=== PATIENT | male | born 1975 | race Caucasian/White ===

== ENCOUNTER → 2018-03-07 | Outpatient (CLI) | payer BC, OTHER ==
[~2018-03-07] MED LIST: BIFI4CAP PO; HYDR-3240 PO; LEVO137T2 PO; NAPR-685 PO; OMEG1CAP23 PO; ROSU20TA PO; SEMA1PEN SC
[2018-03-07 12:58] LABS: ALBUMIN 4.1 g/dL (3.4-5.0); ANION GAP 7 mmol/L (5-15); CHLORIDE 107 mmol/L (98-107)
[2018-03-07 13:01] LABS: ALANINE AMINOTRANSFERASE 94 U/L (12-78); ALKALINE PHOSPHATASE 118 U/L (45-117); BILIRUBIN,TOTAL 0.9 mg/dL (0.2-1.0); CREATININE 1.17 mg/dL (0.7-1.3); TOTAL PROTEIN 8.1 g/dL (6.4-8.2)
== END | disposition home or self-care (01) ==
LOC: STAR 12:09
PROVIDERS: ATTEND Surgery
DX: Z01.818 Encounter for other preprocedural examination (principal)
CPT/HCPCS: 36415; 80053; 93005

== ENCOUNTER 2018-03-11 11:53 | Inpatient (IN) | payer BC ==
[2018-03-07 13:37] VITALS: BP 133/81
[~2018-03-11] VITALS: Ht 185.4 cm; Wt 95.4 kg
[~2018-03-11 11:53] MED LIST changes: +BUPIVACAINE/PF 0.5% ONE; +DIPHENHYDRAMINE 50 MG/ML, 1ML IVPush PRN; +HALOPERIDOL 5 MG/ML IV PRN; -HYDR-3240 PO; -LEVO137T2 PO; +MEPERIDINE/PF 25MG/0.5ML IVPush PRN; +OXYcodone 5 MG/5 ML ORAL.SOL UDC PO PRN; +PROMETHAZINE 25 MG/ML, 1ML IV PRN
[2018-03-11] MEDS ORDERED: ACETAMINOPHEN 500 MG TABLET PO ONE (12:30)
[2018-03-11] MEDS ORDERED: GABAPENTIN 300 MG CAPSULE PO ONE (12:30)
[2018-03-11] MEDS ORDERED: LACTATED RINGERS 1,000 ML IV SCH (12:30)
[2018-03-11] MEDS ORDERED: FENTANYL PF 250 MCG/5ML ONE (15:14)
[2018-03-11] MEDS ORDERED: MIDAZOLAM 1 MG/ML, 2ML ONE (15:14)
[2018-03-11] MEDS ORDERED: EPINEPHRINE 1 MG/ML, 1ML ONE (15:37)
[2018-03-11] MEDS ORDERED: FENTANYL PF 100 MCG/2ML ONE ×3 (17:17→19:18)
[2018-03-11] MEDS ORDERED: DEXAMETHASONE 4 MG/ML, 1ML ONE (17:20)
[2018-03-11] MEDS ORDERED: PROPOFOL 10 MG/ML, 20ML ONE (17:20)
[2018-03-11] MEDS ORDERED: ONDANSETRON 2MG/ML, 2ML ONE (17:20)
[2018-03-11] MEDS ORDERED: CEFAZOLIN 1,000 MG ONE (17:20)
[2018-03-11] MEDS ORDERED: ROCURONIUM 10MG/ML,5ML ONE (17:20)
[2018-03-11] MEDS ORDERED: GLYCOPYRROLATE 0.2MG/1ML, 5ML ONE (17:20)
[2018-03-11] MEDS ORDERED: NEOSTIGMINE 1 MG/ML, 10ML ONE (17:20)
[2018-03-11] MEDS ORDERED: SUCCINYLCHOLINE 20 MG/ML, 10ML ONE (17:20)
[2018-03-11] MEDS ORDERED: OXYcodone 5 MG/5 ML ORAL.SOL UDC ONE (18:15)
[2018-03-11] MEDS ORDERED: HYDROmorphone 2 MG/ML, 1ML ONE (18:15)
[2018-03-11] MEDS: FENTANYL PF 100 MCG/2ML IV PRN ×3 (18:18→19:20)
[2018-03-11] MEDS: HYDROmorphone 2 MG/ML, 1ML IVPush PRN ×5 (18:25→19:10)
[2018-03-11 19:45] VITALS: BP 144/91
[2018-03-11] MEDS ORDERED: ACETAMINOPHEN 650 MG SUPP PR PRN (20:00)
[2018-03-11] MEDS ORDERED: SEMAGLUTIDE 0.5 MG SQ SCH (20:00)
[2018-03-11] MEDS ORDERED: ACETAMINOPHEN 325 MG TABLET PO PRN (20:00)
[2018-03-11] MEDS ORDERED: hydrALAzine 20 MG/ML, 1ML IV PRN (20:00)
[2018-03-11] MEDS: SODIUM CHLORIDE FLUSH 10ML SYR IVF SCH (20:27)
[2018-03-11] MEDS: HYDROcodone/APAP 5/325 TABLET PO PRN (20:27)
[2018-03-11] MEDS: CALCIUM/VITAMIN D3 250-125 TABLET PO SCH (20:28)
[2018-03-11] MEDS ORDERED: ATORVASTATIN 40 MG TABLET PO SCH (21:00)
[2018-03-12 00:08] VITALS: BP 117/75
[2018-03-12] MEDS: HYDROcodone/APAP 5/325 TABLET PO PRN ×3 (00:37→08:25)
[2018-03-12 04:17] VITALS: BP 121/72
[2018-03-12 05:38] LABS: CALCIUM 8.5 mg/dL (8.5-10.1)
[2018-03-12 07:33] VITALS: BP 132/82
[2018-03-12] MEDS: CALCIUM/VITAMIN D3 250-125 TABLET PO SCH (08:25)
[2018-03-12] MEDS: SODIUM CHLORIDE FLUSH 10ML SYR IVF SCH (08:26)
[2018-03-12] MEDS ORDERED: HYDR-3240 PO (11:07)
[2018-03-12] MEDS ORDERED: LEVO137T2 PO (11:08)
== END 2018-03-12 11:22 | disposition home or self-care (01) | DRG 627 ==
LOC: OUT 11:53 → 4NOR 19:40 → OUT 20:13 → 4NOR 20:22 → DCLOUNGE 03-12 11:02
PROVIDERS: ADMIT Surgery; ATTEND Surgery
PROC: 0GSN0ZZ Reposition Right Inferior Parathyroid Gland, Open Approach (ICD-10-PCS; 2018-03-11)
PROC: 07B20ZZ Excision of Left Neck Lymphatic, Open Approach (ICD-10-PCS; 2018-03-11)
PROC: 07B10ZZ Excision of Right Neck Lymphatic, Open Approach (ICD-10-PCS; 2018-03-11)
PROC: 4A11X4Z Monitoring of Peripheral Nervous Electrical Activity, External Approach (ICD-10-PCS; 2018-03-11)
PROC: 0GTK0ZZ Resection of Thyroid Gland, Open Approach (ICD-10-PCS; principal; 2018-03-11 14:00)
DX: E04.2 Nontoxic multinodular goiter (principal); E78.00 Pure hypercholesterolemia, unspecified; E11.9 Type 2 diabetes mellitus without complications; Z80.0 Family history of malignant neoplasm of digestive organs; Z80.42 Family history of malignant neoplasm of prostate; Z87.891 Personal history of nicotine dependence; Z72.89 Other problems related to lifestyle; Z23 Encounter for immunization
CPT/HCPCS: 36415; J3490; 82310; 83970; 88307; 90656; G0378; J0171; J0690; J1100; J1170; J2250; J2405; J2704; J2710; J3010; C1760; J0330; J7120